=== PATIENT | female | born 2000 | race Caucasian/White ===

== ENCOUNTER 2024-08-14 19:46 | Emergency (ER) | payer MEDICAID ==
[~2024-08-14] VITALS: Ht 157.5 cm; Wt 59.0 kg
[2024-08-14 20:10] VITALS: O2SAT 100
[2024-08-14 22:49] VITALS: BP 103/64; PULSE 69; RESP 16; TEMP 36.89184; O2SAT 100
== END 2024-08-14 22:53 | disposition home or self-care (01) ==
LOC: ER 19:46
DX: S01.511A Laceration without foreign body of lip, initial encounter (principal); W22.8XXA Striking against or struck by other objects, initial encounter; Y93.89 Activity, other specified; Y92.89 Other specified places as the place of occurrence of the external cause; Y99.8 Other external cause status
CPT/HCPCS: 12011; 99282; Z7610